=== PATIENT | female | born 1985 | race Caucasian/White ===

== ENCOUNTER 2019-10-12 00:37 | Day surgery (SDC) | payer BC, SELFPAY ==
[2019-10-10 14:48] VITALS: BMI 37.8
--- NOTE | 2019-10-11 17:34 | P.PNAN_ITS ---
Anes - Eval Pre Procedure Procedure: Operation Date: 10/12/19 08:00 Proposed Procedures p Colonoscopy - Steve DaviYolanda Cohn DO Date/Time: 10/11/19 17:34 Pre Op Diagnosis: Alternating consipation and diarrhea Patient Data Age: 34 Gender: F Height: 5 ft 4 in Weight: 100 kg Allergies Allergy/AdvReac Type Severity Reaction Status Date / Time Penicillins Allergy Intermediate Hives Verified 10/10/19 14:36 Home Medications Medication Instructions Recorded Confirmed Type etonogestrel-ethinyl estradiol 1 vag ring VAGINAL MONTHLY 09/27/19 10/10/19 History [NuvaRing] hyoscyamine sulfate 0.125 mg PO Q4H PRN 09/27/19 10/10/19 History ondansetron 4 mg PO Q8H PRN 09/27/19 10/10/19 History pantoprazole 40 mg PO DAILY 09/27/19 10/10/19 History ibuprofen 400 mg PO Q6H PRN 10/10/19 10/10/19 History Patient hx anesthesia problems: none Family hx anesthesia problems: none PMFSH Past Medical History Medical History (Updated 10/11/19 @ 17:36 by Juliano Alves CRNA) Altered bowel habits Anxiety and depression Constipation Diarrhea GERD (gastroesophageal reflux disease) Lower abdominal pain Nausea Obesity Shingles Surgical History Surgical History H/O tubal ligation Family History Family History Mother Hypertension Father Depression Grandparent Carcinoma of colon Grandparent Lung cancer Social History Social History (Updated 10/02/19 @ 12:11 by Gely Severino, CARDIOPULMONARY TECHNOLOGIST) Smoking packs per day: 1 Smoking cigarettes per day: 20.0 Years smoked: 10 Smoking pack-years: 10.00 Smoking status: Former smoker Alcohol intake: current Alcohol use details: 1 time per month Exam Day of Procedure 10/11/19 17:34
[2019-10-12 06:54] VITALS: BP 135/90; PULSE 98; RESP 16; TEMP 37.1; O2SAT 97
[2019-10-12] MEDS: LACTATED RINGERS 1,000 ML 150 ML IV CONT (07:05)
--- NOTE | 2019-10-12 07:24 | P.PNAN_ITS ---
Anes - Eval Final PreProcedure Day of Procedure 10/12/19 07:24 Patient weight: obese Heart: regular rate and rhythm Lungs: clear to auscultation Airway: Mallampati scale class II Neurological: alert and oriented Last oral intake: >/= 8 hours ASA classification: II Emergent: no Anesthetic plan: proceed Anesthesia type and monitoring: general GIVS and standard monitoring Informed Consent: The patient's anesthetic plan and its attendant risks and be nefits were discussed with the patient/family/POA. Questions were solicited and answers provided to the satisfaction of the patient/family/POA.
--- NOTE | 2019-10-12 07:46 | WPDHPUPDATE1 ---
History and Physical Update Update Date/Time: 10/12/19 07:46 History and Physical has been reviewed, including an updated exam of the patient. There are NO changes in the patient's condition. Risks, benefits, and alternatives have been discussed and questions answered. Patient agrees to proceed with procedure. Plan: 1. Colonoscopy today 2. Abd US and HIDA 3. Will send in Zegrid
[2019-10-12 08:45] VITALS: BP 109/70; PULSE 80; RESP 16; O2SAT 97
[2019-10-12 08:55] VITALS: BP 119/75; PULSE 75; RESP 16; O2SAT 100
[2019-10-12 09:05] VITALS: BP 123/86; PULSE 85; RESP 16; O2SAT 100
== END 2019-10-12 09:20 | disposition home or self-care (01) ==
PROVIDERS: PCP Internal Medicine; Visit Provider Internal Medicine Gastroenterology
PROC: 0DJD8ZZ Inspection of Lower Intestinal Tract, Via Natural or Artificial Opening Endoscopic (ICD-10-PCS; CPT 45378; principal; 2019-10-12 08:00)
DX: R19.4 Change in bowel habit (principal); R10.30 Lower abdominal pain, unspecified; K21.9 Gastro-esophageal reflux disease without esophagitis; F41.8 Other specified anxiety disorders; E66.9 Obesity, unspecified; Z68.37 Body mass index [BMI] 37.0-37.9, adult; Z87.891 Personal history of nicotine dependence
CPT/HCPCS: 45380; 88305; J2001; J2704; J7120

== ENCOUNTER 2021-05-15 12:53 | Emergency (ER) | payer BC, SELFPAY ==
--- NOTE | 2021-05-15 12:54 | ED.URI ---
HPI - URI/Sore Throat General Chief Complaint: Upper Respiratory Infection Stated Complaint: sore throat Time Seen by Provider: 05/15/21 12:54 Source: patient and RN notes reviewed History of Present Illness HPI Narrative: Patient is a 36-year-old female who presents the urgent care with complaints of a sore throat, congestion and fatigue. Patient states her symptoms started approximately 2 to 3 days ago and she is taking ibuprofen intermittently. Patient denies of any known contacts to strep or Covid. States that she has had a Covid vaccine. Patient denies any fever, nausea, vomiting. No other acute complaints. No acute distress noted. Patient aware of the plan of care. Some parts of this dictation were generated by voice recognition software and may contain typographical and/or grammatical inaccuracies. Related Data Home Medications Medication Instructions Recorded Confirmed buspirone 5 mg PO DAILY 05/15/21 05/15/21 Allergies Allergy/AdvReac Type Severity Reaction Status Date / Time Penicillins Allergy Intermediate Hives Verified 05/15/21 12:59 Review of Systems Review of Systems: CONSTITUTIONAL: Denies fever, chills, or sweats. Reports of fatigue EYES: Denies visual changes, redness, or discharge. ENT: Denies rhinorrhea, or otalgia. Reports of sore throat and sinus congestion CARDIOVASCULAR: Denies chest pain, palpitations, or edema. RESPIRATORY: Denies cough or dyspnea. GASTROINTESTINAL: Denies abdominal pain, nausea, vomiting, or diarrhea. GENITOURINARY: Denies dysuria or hematuria. SKIN: Denies rash or itching. MUSCULOSKELETAL: Denies back pain, joint pain, or myalgia. NEUROLOGIC: Denies headache, numbness, or weakness. All other systems reviewed are negative, except as documented in HPI. [facility] Past Medical History Medical History (Updated 05/15/21 @ 13:15 by ESTEPHANIA Dougherty) Altered bowel habits Anxiety and depression Constipation Diarrhea GERD (gastroesophageal reflux disease) Lower abdominal pain Nausea Obesity Shingles Surgical History Surgical History H/O tubal ligation Family History Family History Mother Hypertension Father Depression Grandparent Carcinoma of colon Grandparent Lung cancer Social History Social History (Updated 10/02/19 @ 12:11 by Gely Severino, [employer]) Smoking packs per day: 1 Smoking cigarettes per day: 20.0 Years smoked: 10 Smoking pack-years: 10.00 Smoking status: Former smoker Alcohol intake: current Alcohol use details: 1 time per month Comments At the time of my signature, I reviewed and agree with the nursing past medical, surgical, social, and family history. There is no relevant family history pertinent to the patient complaint. Exam Narrative: GENERAL: This is a well-nourished, well-developed patient, in no apparent distress. HEAD: normocephalic, atraumatic. EYES: PERRL. Sclera clear/white. Vision is grossly intact. EARS: External ears normal, auditory canals clear and without drainage, TMs normal without perforation. Hearing grossly intact. NOSE: External nose normal with no obvious nasal discharge, nares without redness, no rhinorrhea. THROAT: Mucous membranes moist, mild erythema noted to posterior oropharynx with mild postnasal drainage NECK: Neck supple, mild tender bilateral submandibular and post cervical lymphadenopathy CARDIOVASCULAR: Regular rate and rhythm without murmurs, gallops, or rubs. RESPIRATORY: Clear to auscultation. Breath sounds equal bilaterally. No wheezes, rales, or rhonchi. SKIN: warm, intact with no suspicious lesions or rash, good texture and turgor. NEURO: awake, alert, and oriented to person, place and time. There were no obvious focal neurologic abnormalities. EXTREMITIES: No clubbing, cyanosis, or edema. Course Vital Signs Vital signs: Vital Signs Temperature 97.6 F 09/0
[2021-05-15 12:58] VITALS: BP 126/81; PULSE 74; RESP 20; TEMP 36.4; O2SAT 99
[2021-05-16 18:57] LABS: SARS-CoV-2 RNA PCR Negative
== END 2021-05-15 13:21 | disposition home or self-care (01) ==
PROVIDERS: Emergency Provider Nurse Practitioner Family; PCP Internal Medicine
DX: J02.9 Acute pharyngitis, unspecified (principal); Z20.822 Contact with and (suspected) exposure to COVID-19; Z87.891 Personal history of nicotine dependence; K21.9 Gastro-esophageal reflux disease without esophagitis; F41.9 Anxiety disorder, unspecified; F32.9 Major depressive disorder, single episode, unspecified
CPT/HCPCS: 87081; 87880; 99213; C9803; G0463; U0003; U0005

== ENCOUNTER 2023-03-04 15:42 | Outpatient (CLI) | payer BC, SELFPAY ==
--- NOTE | 2023-03-04 | ECHO_ITS ---
Patient Info Name: Jossie Hood Age: 38 years : 1985 Gender: Female Ht: 64 in Wt: 220 lbs BSA: 2.17 m2 HR: 68 bpm BP: 118 / 73 mmHg Heart Rhythm: Sinus Rhythm Technical Quality: Good Exam Date: 03/04/2023 4:21 PM Exam Location: [facility] Card Pulmonary Patient Status: Preadmit Admit Date: 03/04/2023 Physical Chemist: Stacy Sanchez RDCS Attending Provider: Dewayne, Freddy DUFFY Exam Type: CA echo doppler color flow Study Info Indications - PALPITATIONS Complete two-dimensional, color flow and Doppler transthoracic echocardiogram is performed. Summary 1. Complete two-dimensional, color flow and Doppler transthoracic echocardiogram is performed. 2. Left ventricular chamber dimension is normal. 3. Left ventricular systolic function is normal, estimated at 65-70%. 4. There is no increased left ventricular wall thickness. 5. The left ventricular diastolic function is normal. 6. Global longitudinal strain is normal at -19 %. 7. There is trace tricuspid valve regurgitation. 8. No pulmonary hypertension, estimated pulmonary arterial systolic pressure is 31 mmHg. Left Ventricle Left ventricular chamber dimension is normal. Left ventricular systolic function is normal, estimated at 65-70%. There is no increased left ventricular wall thickness. The left ventricular diastolic function is normal. Global longitudinal strain is normal at -19 %. Right Ventricle Right ventricular chamber dimension is normal. Right ventricular systolic function is normal. Left Atria Left atrial chamber dimension is normal. Right Atria Right atrial chamber dimension is normal. Atrial Septum Thin and hypermobile. Aortic Valve The aortic valve is not well visualized. There is no aortic valve stenosis. There is no aortic valve regurgitation. Pulmonic Valve The pulmonic valve is not well visualized. Mitral Valve The mitral valve has normal leaflets. There is trace mitral valve regurgitation. Tricuspid Valve The tricuspid valve leaflets are normal. There is trace tricuspid valve regurgitation. No pulmonary hypertension, estimated pulmonary arterial systolic pressure is 31 mmHg. Pericardium/Pleural The pericardium appears normal. There is no pericardial effusion. Inferior Vena Cava Normal inferior vena cava with >50% collapse upon inspiration consistent with normal right atrial pressure, 5 mmHg. Aorta The aortic root size at the sinus of Valsalva is normal. Left Ventricular Outflow Tract Name Value Normal LVOT 2D LVOT Diameter 2.1 cm LVOT Doppler LVOT Peak Gradient 4 mmHg LVOT Mean Gradient 2 mmHg LVOT VTI 19 cm LVOT VTI/AV VTI Ratio 0.8 LVOT Stroke Volume 65 ml LVOT CO 13.6 l/min LVOT CI 6.3 l/min/m2 Pulmonic Valve Name Value Normal RVOT Doppler
== END 2023-03-04 15:43 | disposition home or self-care (01) ==
LOC: ANHCARD 15:43
PROVIDERS: PCP Internal Medicine; Visit Provider Internal Medicine
DX: R00.2 Palpitations (principal)
CPT/HCPCS: 93306